=== PATIENT | male | born 1945 | race Asian ===

== ENCOUNTER → 2018-05-29 | Outpatient (CLI) | payer MEDICARE, OTHER ==
[2018-05-29 13:55] LABS: ANION GAP 16 (8-16); BLOOD UREA NITROGEN 13 mg/dl (7-20); CALCIUM 10.4 mg/dl (8.4-10.2); CARBON DIOXIDE 30 mmol/L (21-31); CHLORIDE 101 mmol/L (97-110); CREATININE 1.26 mg/dl (0.61-1.24); GLUCOSE 109 mg/dl (70-220); POTASSIUM 4.9 mmol/L (3.5-5.1); SODIUM 142 mmol/L (135-144)
[2018-05-29] MEDS: METOPROLOL 100 MG TAB (14:43)
[2018-05-29] MEDS: NITROGLYCERIN AEROSOL (4.9 GM) (16:55)
[2018-05-29] MEDS: IOHEXOL 100 ML (17:00)
[2018-05-29] MEDS: SOD CHLORIDE 0.9% 100 ML (17:01)
== END | disposition home or self-care (01) ==
LOC: LAB 13:18
DX: Z01.818 Encounter for other preprocedural examination (principal); R94.39 Abnormal result of other cardiovascular function study
CPT/HCPCS: 75571; 75574; 80048